=== PATIENT | male | born 1970 | race Caucasian/White ===

== ENCOUNTER 2017-09-24 05:07 | Emergency (ER) | payer SELFPAY ==
[2017-09-24] MEDS: LORAZEPAM 1 MG TAB PO (07:17)
== END 2017-09-24 08:05 | disposition home or self-care (01) ==
LOC: E/R 05:07
DX: G40.909 Epilepsy, unspecified, not intractable, without status epilepticus (principal); I45.81 Long QT syndrome
CPT/HCPCS: 82962; 93005; 99283-25

== ENCOUNTER 2017-09-27 00:07 | Emergency (ER) | payer SELFPAY ==
[2017-09-27 03:59] LABS: ADD MAN DIFF? NO
[2017-09-27 04:00] LABS: WHITE BLOOD COUNT 4.4 10^3/ul (4.8-10.8)
[2017-09-27 04:01] LABS: BASOPHILS % 0.7 % (0.0-2.0); EOSINOPHILS # 0.1 10^3/ul (0.0-0.5); EOSINOPHILS % 2.7 % (0.0-7.0); HEMATOCRIT 43.4 % (42.0-52.0); HEMOGLOBIN 15.1 g/dl (14.0-18.0); LYMPHOCYTES # 1.2 10^3/ul (0.8-2.9); LYMPHOCYTES % 26.3 % (15.0-51.0); MEAN CORPUSCULAR HEMOGLOBIN 29.8 pg (29.0-33.0); MEAN CORPUSCULAR HGB CONC 34.8 g/dl (32.0-37.0); MEAN CORPUSCULAR VOLUME 85.8 fl (82.0-101.0); MEAN PLATELET VOLUME 10.4 fl (7.4-10.4); MONOCYTE # 0.6 10^3/ul (0.3-0.9); MONOCYTES % 14.1 % (0.0-11.0); NEUTROPHIL # 2.5 10^3/ul (1.6-7.5); NEUTROPHILS % 55.7 % (39.0-77.0); PLATELET COUNT 183 10^3/UL (140-415); RED BLOOD COUNT 5.06 10^6/ul (4.70-6.10); RED CELL DISTRIBUTION WIDTH 11.9 % (11.5-14.5)
[2017-09-27 04:34] LABS: ALANINE AMINOTRANSFERASE 57 IU/L (13-69); ALBUMIN 3.1 g/dl (3.3-4.9); ALBUMIN/GLOBULIN RATIO 1.14; ALKALINE PHOSPHATASE 72 IU/L (42-121); ANION GAP 8 (8-16); ASPARTATE AMINO TRANSFERASE 50 IU/L (15-46); BILIRUBIN,INDIRECT 0.6 mg/dl (0-1.1); BILIRUBIN,TOTAL 0.6 mg/dl (0.2-1.3); BLOOD UREA NITROGEN 8 mg/dl (7-20); CALCIUM 8.2 mg/dl (8.4-10.2); CARBON DIOXIDE 28 mmol/L (21-31); CHLORIDE 105 mmol/L (97-110); CREATININE 0.71 mg/dl (0.61-1.24); GLUCOSE 102 mg/dl (70-220); POTASSIUM 3.9 mmol/L (3.5-5.1); SODIUM 137 mmol/L (135-144); TOTAL PROTEIN 5.8 g/dl (6.1-8.1)
== END 2017-09-27 05:03 | disposition home or self-care (01) ==
LOC: FTE 00:07
DX: R51 Headache (principal); J01.00 Acute maxillary sinusitis, unspecified; R55 Syncope and collapse
CPT/HCPCS: 70450; 80053; 85025; 93005; 99285-25

== ENCOUNTER 2017-10-04 14:00 | Emergency (ER) | payer SELFPAY | END 2017-10-04 17:30 | disposition left against medical advice (07) | LOC: FTE 14:00 | DX: Z53.21 Procedure and treatment not carried out due to patient leaving prior to being seen by health care provider (principal) ==